=== PATIENT | female | born 1985 | race American Indian/Alaskan Native ===

== ENCOUNTER 2016-12-26 21:42 | Emergency (ER) | payer MEDICAID ==
[2016-12-27] MEDS ORDERED: PEPCID PO ONE (02:19)
[2016-12-27] MEDS ORDERED: DECADRON IM ONE (02:19)
--- NOTE | 2016-12-27 02:19 | Emergency Department Report ---
- General Chief complaint: Skin Rash Stated complaint: RASH Time Seen by Provider: 12/27/16 01:38 Source: patient Mode of arrival: Ambulatory Limitations: No Limitations - History of Present Illness Initial comments: Patient here with rash on right thigh and upper leg that she said she noticed this morning. She says she thinks she's been stung by something but she is not sure why. She is reporting itching to the site and pain 5 out of 10 that feels like burning. She did not take any [id number] medication for this. Tetanus vaccine is up-to-date. Denies any respiratory symptoms. Patient denies any medical or surgical problems. MD complaint: insect bite/sting -: This morning Tetanus Up to Date: yes Location: RLE Severity: mild Severity scale (0 -10): 5 Quality: burning Consistency: constant Improves with: none Worsens with: none Context: witnessed insect bite Associated symptoms: athralgias Treatments Prior to Arrival: none - Related Data Home Medications Medication Instructions Recorded Confirmed Last Taken Butalb/Acetamin/Caff 50-325-40 1 each PO Q6HR PRN 11/17/14 03/22/15 11/16/14 [Fioricet] Docusate Sodium [Doc-Q-Lace] 1 tab PO BID 11/17/14 03/22/15 11/16/14 Vit #76/Iron,Carb/FA 1 tab PO DAILY 11/17/14 03/22/15 2 Days Ago [Vol-Tab Rx Tablet] Previous Rx's Medication Instructions Recorded Last Taken Type HYDROcodone/APAP 5-325 [[place] 2 each PO Q6H PRN #20 tablet 03/23/15 Unknown Rx 5-325 mg TAB] Multivitamin with Iron 1 each PO DAILY #30 tablet 03/23/15 Unknown Rx [Multivitamins with Iron] Cephalexin [Keflex] 500 mg PO Q8HR #21 cap 12/27/16 Unknown Rx Ibuprofen [Motrin 600 MG tab] 600 mg PO Q6HR PRN #12 tablet 12/27/16 Unknown Rx diphenhydrAMINE [Benadryl CAP] 50 mg PO Q8HR PRN #12 capsule 12/27/16 Unknown Rx predniSONE [Deltasone] 50 mg PO QDAY #3 tab 12/27/16 Unknown Rx Allergies Allergy/AdvReac Type Severity Reaction Status Date / Time No Known Allergies Allergy Verified 11/17/14 00:34 Abscess Boil HPI - HPI Chief Complaint: Skin Rash Stated Complaint: RASH Time Seen by Provider: 12/27/16 01:38 Home Medications: Home Medications Medication Instructions Recorded Confirmed Last Taken Butalb/Acetamin/Caff 50-325-40 1 each PO Q6HR PRN 11/17/14 03/22/15 11/16/14 [Fioricet] Docusate Sodium [Doc-Q-Lace] 1 tab PO BID 11/17/14 03/22/15 11/16/14 Vit #76/Iron,Carb/FA 1 tab PO DAILY 11/17/14 03/22/15 2 Days Ago [Vol-Tab Rx Tablet] Previous Rx's Medication Instructions Recorded Last Taken Type HYDROcodone/APAP 5-325 [[place] 2 each PO Q6H PRN #20 tablet 03/23/15 Unknown Rx 5-325 mg TAB] Multivitamin with Iron 1 each PO DAILY #30 tablet 03/23/15 Unknown Rx [Multivitamins with Iron] Cephalexin [Keflex] 500 mg PO Q8HR #21 cap 12/27/16 Unknown Rx Ibuprofen [Motrin 600 MG tab] 600 mg PO Q6HR PRN #12 tablet 12/27/16 Unknown Rx diphenhydrAMINE [Benadryl CAP] 50 mg PO Q8HR PRN #12 capsule 12/27/16 Unknown Rx predniSONE [Deltasone] 50 mg PO QDAY #3 tab 12/27/16 Unknown Rx Allergies/Adverse Reactions: Allergies Allergy/AdvReac Type Severity Reaction Status Date / Time No Known Allergies Allergy Verified 11/17/14 00:34 ED Review of Systems ROS: Stated complaint: RASH Other details as noted in HPI Comment: All other systems reviewed and negative Constitutional: denies: chills, fever Eyes: denies: vision change ENT: denies: ear pain, throat pain, epistaxis, congestion Respiratory: no symptoms reported Cardiovascular: denies: chest pain, palpitations, edema, syncope Gastrointestinal: denies: abdominal pain, nausea, vomiting, diarrhea, constipation Musculoskeletal: myalgia. denies: back pain, joint swelling, arthralgia Skin: rash, pruritus Neurological: denies: headache, weakness, numbness, paresthesias, confusion, abnormal gait, vertigo ED Past Medical Hx - Past Medical History Previous Medical History?: No Hx Hypertension: No Hx Diabetes: No Hx Deep Vein Thrombosis: No Hx Renal Disease: No Hx Sickle Cell Disease: No Hx Seizures: No Hx Asthma: No Hx HIV: No - Surgical History Past Surgical History?: No - Family History Family history: no significant - Social History Smoking Status: Never Smoker Substance Use Type: Alcohol Other Social History: Patient is single - Medications Home Medications: Home Medications Medication Instructions Recorded Confirmed Last Taken Type Butalb/Acetamin/Caff 50-325-40 1 each PO Q6HR PRN 11/17/14 03/22/15 11/16/14 History [Fioricet] Docusate Sodium [Doc-Q-Lace] 1 tab PO BID 11/17/14 03/22/15 11/16/14 History Vit #76/Iron,Carb/FA 1 tab PO DAILY 11/17/14 03/22/15 2 Days Ago History [Vol-Tab Rx Tablet] HYDROcodone/APAP 5-325 [[place] 2 each PO Q6H PRN #20 tablet 03/23/15 Unknown Rx 5-325 mg TAB] Multivitamin with Iron 1 each PO DAILY #30 tablet 03/23/15 Unknown Rx [Multivitamins with Iron] Cephalexin [Keflex] 500 mg PO Q8HR #21 cap 12/27/16 Unknown Rx Ibuprofen [Motrin 600 MG tab] 600 mg PO Q6HR PRN #12 tablet 12/27/16 Unknown Rx diphenhydrAMINE [Benadryl CAP] 50 mg PO Q8HR PRN #12 capsule 12/27/16 Unknown Rx predniSONE [Deltasone] 50 mg PO QDAY #3 tab 12/27/16 Unknown Rx ED Physical Exam - General Limitations: No Limitations General appearance: alert, in no apparent distress - Head Head exam: Present: atraumatic, normocephalic, normal inspection - Eye Eye exam: Present: normal appearance, PERRL, EOMI. Absent: periorbital swelling , periorbital tenderness Pupils: Present: normal accommodation - ENT ENT exam: Present: normal exam, normal orophraynx, mucous membranes moist, TM's normal bilaterally, normal external ear exam - Neck Neck exam: Present: normal inspection, tenderness, full ROM. Absent: meningismus, lymphadenopathy - Respiratory Respiratory exam: Present: normal lung sounds bilaterally. Absent: respiratory distress, wheezes, rales, rhonchi, stridor, chest wall tenderness, accessory muscle use, decreased breath sounds, prolonged expiratory - Cardiovascular Cardiovascular Exam: Present: regular rate, normal rhythm, normal heart sounds - GI/Abdominal GI/Abdominal exam: Present: soft, normal bowel sounds. Absent: distended, tenderness, guarding, rebound, rigid - Extremities Exam Extremities exam: Present: normal inspection, full ROM, normal capillary refill. Absent: tenderness, pedal edema, joint swelling, calf tenderness - Back Exam Back exam: Present: normal inspection, full ROM. Absent: tenderness - Neurological Exam Neurological exam: Present: alert, oriented X3, normal gait. Absent: motor sensory deficit, reflexes normal - Psychiatric Psychiatric exam: Present: normal affect, normal mood - Skin Skin exam: Present: warm, dry, erythema, urticaria - Expanded Skin Exam Expanded Type of lesion: Present: bite/sting (no stinger noted to sites) Distribution of rash: RLE (laterally to thigh/inner 2 x 2 centimeter. 0.5 cm area to mid outer thigh and right small leg) Description of rash: Present: tenderness, erythematous, swelling, urticarial. Absent: crusting, discharge, fluctuant ED Course Vital Signs 12/26/16 12/27/16 21:48 03:04 Temperature 98.7 F 98.1 F Pulse Rate 79 82 Respiratory 20 15 Rate Blood Pressure 126/82 Blood Pressure 121/86 [Right] O2 Sat by Pulse 100 100 Oximetry - Reevaluation(s) Reevaluation #1: 12/27/16 02:45 given Geodon 10 mg IM and Pepcid 40 mg by mouth. Reevaluation #2: 12/27/16 02:53 After Decadron and Pepcid, erythema subsided. 12/27/16 07:49 ED Medical Decision Making - Medical Decision Making ED course: Patient here status post insect bite. Patient developed erythema and allergic reaction and was given Decadron 10 mg IM and Pepcid 40 mg by mouth. 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 She monitored in emergency room and erythema subsided. She did not have any respiratory symptoms while in emergency room Diagnostic and labs: No need for labs. Review of previous visits. Patient had multiple previous visit for pain, . and care and headache Assessment: Insect bite, cellulitis, allergic reaction secondary to insect bite Plan follow-up with your primary care physician and if he do not have one he can follow-up at community clinic that you were referred to. Keep affected area clean and dry. Given Decadron 10 mg IM and Pepcid 40 mg by mouth. Discharged home with prescription for prednisone, Pepcid and Benadryl and to follow-up or to return to the emergency room if area of redness increases or if she develops any respiratory symptoms. Critical care attestation.: If time is entered above; I have spent that time in minutes in the direct care of this critically ill patient, excluding procedure time. ED Disposition Clinical Impression: Allergy, insect bite, Cellulitis of right lower extremity, Arthralgia of right thigh Disposition: - TO HOME OR SELFCARE Is pt being admited?: No Does the pt Need Aspirin: No Condition: Stable Instructions: Urticaria (ED), Cellulitis (ED), Insect Bite or Sting (ED), Arthralgia (ED) Additional Instructions: Please follow up with primary care as recommended Increase fluid intake Take medication as prescribed . These do not take Benadryl while driving or operating heavy machinery as this medication causes drowsiness please keep affected area clean and dry If you noticed areas of redness increased , swelling increased and an increase in pain return to the emergency room Prescriptions: Cephalexin [Keflex] 500 mg PO Q8HR #21 cap diphenhydrAMINE [Benadryl CAP] 50 mg PO Q8HR PRN #12 capsule PRN Reason: Allergy Symptoms Ibuprofen [Motrin 600 MG tab] 600 mg PO Q6HR PRN #12 tablet PRN Reason: Pain predniSONE [Deltasone] 50 mg PO QDAY #3 tab Referrals: PRIMARY CARE, [Primary Care Provider] - 3-5 Days [facility] [Outside] - 3-5 Days Forms: Work/School Release Form(ED)
[2016-12-27 03:05] VITALS: BP 121/86
== END 2016-12-27 03:04 | disposition home or self-care (01) ==
LOC: ED 21:42
DX: S70.361A Insect bite (nonvenomous), right thigh, initial encounter (principal); L03.115 Cellulitis of right lower limb; M79.651 Pain in right thigh; W57.XXXA Bitten or stung by nonvenomous insect and other nonvenomous arthropods, initial encounter; Y93.89 Activity, other specified; Y99.8 Other external cause status; Y92.89 Other specified places as the place of occurrence of the external cause
CPT/HCPCS: 96372; 99282; J1100

== ENCOUNTER 2017-09-16 12:51 | Day surgery (SDC) | payer MEDICAID ==
[~2017-09-16 12:51] MED LIST: ANCEF/STERILE WATER 2 GM/20 ML 2 GM/20 ML SYRINGE IV NR; MARCAINE 0.5% INFILTRATI ONE
--- NOTE | 2017-09-16 13:04 | Short Stay Summary ---
Short Stay Documentation Date of service: 09/16/17 Narrative H&P: Pt is a 32yo BF LMP 2 years ago presents for permanent sterilization - History Principal diagnosis: Desires permanent sterilization H&P: obtained from office Past Medical History: No medical history Past Surgical History: No surgical history Social history: no significant social history, single - Allergies and Medications Current Medications: Allergies No Known Allergies Allergy (Verified 11/17/14 00:34) Home Medications Medication Instructions Recorded Confirmed Last Taken Type Butalb/Acetamin/Caff 50-325-40 1 each PO Q6HR PRN 11/17/14 03/22/15 11/16/14 History [Fioricet] Docusate Sodium [Doc-Q-Lace] 1 tab PO BID 11/17/14 03/22/15 11/16/14 History Vit,Calc76/Iron/Folic 1 tab PO DAILY 11/17/14 03/22/15 2 Days Ago History [Vol-Tab Rx Tablet] ~03/20/15 HYDROcodone/APAP 5-325 [[place] 2 each PO Q6H PRN #20 tablet 03/23/15 Unknown Rx 5-325 mg TAB] Multivitamin with Iron 1 each PO DAILY #30 tablet 03/23/15 Unknown Rx [Multivitamins with Iron] Cephalexin [Keflex] 500 mg PO Q8HR #21 cap 12/27/16 Unknown Rx Ibuprofen [Motrin 600 MG tab] 600 mg PO Q6HR PRN #12 tablet 12/27/16 Unknown Rx diphenhydrAMINE [Benadryl CAP] 50 mg PO Q8HR PRN #12 capsule 12/27/16 Unknown Rx predniSONE [Deltasone] 50 mg PO QDAY #3 tab 12/27/16 Unknown Rx Active Medications Cefazolin Sodium (Ancef/Sterile Water 2 Gm/20 Ml) 2 gm in 20 mls @ 80 mls/hr IV PREOP NR; Protocol Stop: 09/16/17 23:00 - Physical exam General appearance: no acute distress Integumentary: no rash HEENT: Atraumatic Lungs: Clear to auscultation Breasts: deferred Heart: Regular rate Gastrointestinal: normal Female Genitourinary: deferred Rectal Exam: deferred Extremities: No edema Neurological: Normal gait, Normal speech - Brief post op/procedure progress note Date of procedure: 09/16/17 Pre-op diagnosis: Desires permanent sterilization Post-op diagnosis: same Procedure: Laparoscopic Bilateral Tubal Ligation Anesthesia: GETA Findings: Normal uterus. Normal tubes and ovaries bilaterally. Surgeon: BARBARA UMAÑA Estimated blood loss: minimal Pathology: none Condition: stable - Hospital course Hospital course: Unremarkable. - Disposition Condition at discharge: Good Disposition: DC-01 TO HOME OR SELFCARE - Discharge Diagnoses (1) Encounter for sterilization Status: Resolved Short Stay Discharge Plan Activity: no restrictions Diet: regular Wound: open to air, keep clean and dry Follow up with: CELESTE LONG MD [Primary Care Provider] - 7 Days BARBARA UMAÑA MD [Staff Physician] - 14 Days Prescriptions: HYDROcodone/APAP 5-325 [[place] 5/325] 1 each PO Q6HR PRN #20 tablet PRN Reason: Pain Ibuprofen [Motrin] 600 mg PO Q8H PRN #30 tablet PRN Reason: Pain
--- NOTE | 2017-09-16 13:20 | Anesthesia Consultation ---
Anesthesia Consult and Med Hx Date of service: 09/16/17 - Airway Anesthetic Teeth Evaluation: Good ROM Head & Neck: Adequate Mental/Hyoid Distance: Adequate Mallampati Class: Class I Intubation Access Assessment: Good - Pulmonary Exam CTA: Yes - Cardiac Exam Cardiac Exam: RRR - Pre-Operative Health Status ASA Pre-Surgery Classification: ASA1 Proposed Anesthetic Plan: General - Pulmonary Hx Smoking: Yes Hx Asthma: No Hx Respiratory Symptoms: No - Cardiovascular System Hx Hypertension: No Hx Coronary Artery Disease: No Hx Angina: No - Central Nervous System Hx Neuromuscular Disorder: No Hx Seizures: No CVA: No Hx Psychiatric Problems: No - Gastrointestinal Hx Gastroesophageal Reflux Disease: No - Endocrine Hx Renal Disease: No Hx Insulin Dependent Diabetes: No Hx Non-Insulin Dependent Diabetes: No Hx Hypothyroidism: No Hx Hyperthyroidism: No - Hematic Hx Anemia: No Hx Sickle Cell Disease: No - Other Systems Hx Alcohol Use: Yes (socially) Hx Substance Use: No Hx Obesity: No
--- NOTE | 2017-09-16 13:20 | Anesthesia Day of Surgery ---
Anesthesia Day of Surgery - Day of Surgery Patient Examined: Yes Patient H&P Reviewed: Yes Patient is NPO: Yes
[2017-09-16] MEDS ORDERED: DEMEROL IV PRN (13:22)
[2017-09-16] MEDS ORDERED: DILAUDID IV PRN ×2 (13:22)
[2017-09-16] MEDS ORDERED: TORADOL IV PRN (13:22)
[2017-09-16] MEDS ORDERED: NARCAN 0.4 MG/1 ML IV PRN (13:22)
[2017-09-16 13:39] LABS: Hematocrit 43.9 % (30.3-42.9); Hemoglobin 13.5 gm/dl (10.1-14.3)
[2017-09-16] MEDS ORDERED: QUELICIN ONE (13:42)
[2017-09-16] MEDS ORDERED: DIPRIVAN 10 MG/ML IV ONE (13:43)
[2017-09-16] MEDS ORDERED: XYLOCAINE MPF 2% ONE (13:45)
[2017-09-16] MEDS ORDERED: DILAUDID ONE (13:46)
[2017-09-16] MEDS ORDERED: ZOFRAN IV NR (14:00)
[2017-09-16] MEDS ORDERED: LACTATED RINGERS 1,000 ML IV SCH (14:00)
[2017-09-16] MEDS ORDERED: MARCAINE 0.5% INFILTRATI ONE (14:27)
[2017-09-16] MEDS ORDERED: NACL 0.9% IR ONE (14:28)
--- NOTE | 2017-09-16 14:44 | Operative Report ---
Operative Report Operative Report: PREOPERATIVE DIAGNOSIS: Desires permanent sterilization POSTOPERATIVE DIAGNOSIS: Same OPERATIVE PROCEDURE: Laparoscopic bilateral tubal ligation. SURGEON: Hai Ferrer MD ANESTHESIA: Gen. endotracheal intubation ANESTHESIOLOGIST: Dr. Sánchez ESTIMATED BLOOD LOSS: Minimal FINDINGS: Normal uterus. Normal tubes and ovaries bilaterally. COMPLICATIONS: None COUNTS: Correct x3. PROCEDURE: After the patient was correctly identified and after general anesthesia was administered, the patient was prepped and draped in usual sterile fashion and placed in dorsal lithotomy position. First, the bladder was emptied using a straight catheter. Next, a speculum was placed in the vaginal vault and the anterior lip of the cervix was grasped using a single- tooth tenaculum. The uterine manipulator was then placed and the tenaculum and speculum were removed. Attention was then turned to the abdomen where first a periumbilical incision was made using a skin knife, and the Optiview trocar was inserted under direct visualization. After an adequate amount of abdominal insufflation, visualization of the pelvic organs found the uterus to be normal, and the tubes and ovaries to be normal bilaterally. Next, the left fallopian tube was grasped using the Kleppingers, and after identifying the fimbriated end of the left tube, this tube was cauterized in 3 continuous [address] along the proximal portion of the left tube. The same procedure was performed on the right fallopian tube after first identifying the fimbriated end of the right tube. This tube was also cauterized in 3 continuous places along the proximal portion of the right tube. At this point, the procedure was then considered complete. All instruments were removed from the abdomen. The abdomen was deflated and the periumbilical incision was closed using 0 Vicryl suture in a [id number] configuration on the fascia, followed by 4-0 Monocryl suture in subcuticular fashion on the skin. The incision was also infiltrated using 0.5% Marcaine solution. The uterine manipulator was removed. The patient tolerated the procedure well and was transferred to recovery room stable condition.
[2017-09-16 16:02] VITALS: BP 103/73
--- NOTE | 2017-09-16 16:43 | Post Anesthesia Evaluation ---
- Post Anesthesia Evaluation Patient Participated: Yes Airway Patent: Yes Stable Respiratory Function: Yes Nausea/Vomiting: No Temp > 96.8F: Yes Pain Manageable: Yes Adequeate Hydration: Yes Anesthesia Complications: No Patient on Ventilator: No
== END 2017-09-16 16:24 | disposition home or self-care (01) ==
LOC: OR 12:51
PROVIDERS: ATTEND Obstetrics & Gynecology
DX: Z30.2 Encounter for sterilization (principal); Z79.899 Other long term (current) drug therapy
CPT/HCPCS: 36415; 58670; 81025; 85014; 85018; J0330; J0690; J1170; J2405; J2704; J7120

== ENCOUNTER 2018-06-10 09:02 | Emergency (ER) | payer SELFPAY ==
[2018-06-10 09:23] VITALS: BP 138/74
[2018-06-10] MEDS ORDERED: IBUPROFEN PO ONE (09:58)
--- NOTE | 2018-06-10 10:01 | Emergency Department Report ---
ED ENT HPI - General Chief complaint: Earache Stated complaint: RIGHT EAR Time Seen by Provider: 06/10/18 09:48 Source: patient Mode of arrival: Ambulatory Limitations: No Limitations - History of Present Illness Initial comments: This is a 32-year-old female brought by mother nontoxic, well nourished in appearance, no acute signs of distress presents to the ED with c/o of right earache. Patient denies any ear drainage. Patient denies any trauma to the area. Patient denies any mastoid tenderness. Patient agrees to tragus tenderness. Patient denies hearing decrease or hearing changes. Patient denies any fever, chills, nausea, vomiting, chest pain, short of breath, headache or stiff neck. Patient denies any drug allergies or significant past medical history. MD complaint: ear pain -: days(s) (1) Location: R ear Severity: mild Severity scale (0 -10): 8 Quality: aching Consistency: constant Improves with: none Worsens with: none Associated Symptoms: denies: fever, cough, gum swelling, toothache, pain with swallowing, sore throat, tinnitus, hearing loss, discharge from ear, rhinorrhea - Related Data Previous Rx's Medication Instructions Recorded Last Taken Type HYDROcodone/APAP 5-325 [[place] 1 each PO Q6HR PRN #20 tablet 09/16/17 Unknown Rx 5/325] Ibuprofen [Motrin] 600 mg PO Q8H PRN #30 tablet 09/16/17 Unknown Rx Amoxicillin [Amoxicillin TAB] 875 mg PO BID #20 tablet 06/10/18 Unknown Rx Ciprofloxacin 0.2%(Nf) 4 drops AD TID #1 droperette 06/10/18 Unknown Rx [Ciprofloxacin Otic 0.2%(Nf)] Allergies Allergy/AdvReac Type Severity Reaction Status Date / Time No Known Allergies Allergy Verified 11/17/14 00:34 ED Dental HPI - General Chief complaint: Earache Stated complaint: RIGHT EAR Time Seen by Provider: 06/10/18 09:48 Source: patient Mode of arrival: Ambulatory Limitations: No Limitations - Related Data Previous Rx's Medication Instructions Recorded Last Taken Type HYDROcodone/APAP 5-325 [[place] 1 each PO Q6HR PRN #20 tablet 09/16/17 Unknown Rx 5/325] Ibuprofen [Motrin] 600 mg PO Q8H PRN #30 tablet 09/16/17 Unknown Rx Amoxicillin [Amoxicillin TAB] 875 mg PO BID #20 tablet 06/10/18 Unknown Rx Ciprofloxacin 0.2%(Nf) 4 drops AD TID #1 droperette 06/10/18 Unknown Rx [Ciprofloxacin Otic 0.2%(Nf)] Allergies Allergy/AdvReac Type Severity Reaction Status Date / Time No Known Allergies Allergy Verified 11/17/14 00:34 ED Review of Systems ROS: Stated complaint: RIGHT EAR Other details as noted in HPI Constitutional: denies: chills, fever Eyes: denies: eye pain, eye discharge, vision change ENT: ear pain. denies: throat pain Respiratory: denies: cough, shortness of breath, wheezing Cardiovascular: denies: chest pain, palpitations Endocrine: no symptoms reported Gastrointestinal: denies: abdominal pain, nausea, diarrhea Genitourinary: denies: urgency, dysuria, discharge Musculoskeletal: denies: back pain, joint swelling, arthralgia Skin: denies: rash, lesions Neurological: denies: headache, weakness, paresthesias Psychiatric: denies: anxiety, depression Hematological/Lymphatic: denies: easy bleeding, easy bruising ED Past Medical Hx - Past Medical History Previous Medical History?: No Hx Hypertension: No Hx Diabetes: No Hx Deep Vein Thrombosis: No Hx Renal Disease: No Hx Sickle Cell Disease: No Hx Seizures: No Hx Asthma: No Hx HIV: No - Surgical History Past Surgical History?: No - Social History Smoking Status: Current Every Day Smoker Substance Use Type: None - Medications Home Medications: Home Medications Medication Instructions Recorded Confirmed Last Taken Type HYDROcodone/APAP 5-325 [[place] 1 each PO Q6HR PRN #20 tablet 09/16/17 Unknown Rx 5/325] Ibuprofen [Motrin] 600 mg PO Q8H PRN #30 tablet 09/16/17 Unknown Rx Amoxicillin [Amoxicillin TAB] 875 mg PO BID #20 tablet 06/10/18 Unknown Rx Ciprofloxacin 0.2%(Nf) 4 drops AD TID #1 droperette 06/10/18 Unknown Rx [Ciprofloxacin Otic 0.2%(Nf)] ED Physical Exam - General Limitations: No Limitations General appearance: alert, in no apparent distress - Head Head exam: Present: atraumatic, normocephalic - Expanded ENT Exam Expanded Ear exam: Present: normal external inspection TM/Canal exam: Erythema: Right TM, Bulging: Right TM Mouth exam: Present: normal external inspection Teeth exam: Present: normal inspection Throat exam: Positive: normal inspection - Neck Neck exam: Present: normal inspection, full ROM - Back Exam Back exam: Present: normal inspection, full ROM - Neurological Exam Neurological exam: Present: alert, oriented X3 - Psychiatric Psychiatric exam: Present: normal affect, normal mood - Skin Skin exam: Present: warm, dry, intact, normal color. Absent: rash - Other Other exam information: Positive tragus tenderness. ED Course Vital Signs 06/10/18 09:21 Temperature 98.0 F Pulse Rate 78 Respiratory 18 Rate Blood Pressure 138/74 O2 Sat by Pulse 100 Oximetry - Reevaluation(s) Reevaluation #1: 06/10/18 09:59 Patient is speaking in full sentences with no signs of distress noted. Critical care attestation.: If time is entered above; I have spent that time in minutes in the direct care of this critically ill patient, excluding procedure time. ED Disposition Clinical Impression: Otitis media Qualifiers: Otitis media type: unspecified Laterality: right Qualified Code(s): H66.91 - Otitis media, unspecified, right ear Otitis externa Qualifiers: Otitis externa type: unspecified type Chronicity: acute Laterality: right Qualified Code(s): H60.501 - Unspecified acute noninfective otitis externa, right ear Disposition: DC-01 TO HOME OR SELFCARE Is pt being admited?: No Does the pt Need Aspirin: No Condition: Stable Instructions: Otitis Media (ED), Otitis Externa (ED) Additional Instructions: Follow-up with a primary care doctor in 3-5 days or if symptoms worsen and continue return to emergency room as soon as possible. Prescriptions: Amoxicillin [Amoxicillin TAB] 875 mg PO BID #20 tablet Ciprofloxacin 0.2%(Nf) [Ciprofloxacin Otic 0.2%(Nf)] 4 drops AD TID #1 droperette Referrals: PRIMARY CAREMD [Primary Care Provider] - 3-5 Days KATE EASTON MD [Staff Physician] - 3-5 Days [facility] [Outside] - 3-5 Days [facility] [Outside] - 3-5 Days Forms: Work/School Release Form(ED)
== END 2018-06-10 10:09 | disposition home or self-care (01) ==
LOC: ED 09:02
DX: H60.501 Unspecified acute noninfective otitis externa, right ear (principal); H66.91 Otitis media, unspecified, right ear; F17.200 Nicotine dependence, unspecified, uncomplicated
CPT/HCPCS: 99282